=== PATIENT | female | born 1955 | race African-American/Black ===

== ENCOUNTER 2018-04-06 13:24 | Emergency (ER) | payer MEDICARE, MEDICAID ==
[~2018-04-06] VITALS: Ht 167.6 cm; Wt 102.9 kg
[2018-04-06] MEDS ORDERED: ASPIRIN 81 MG TABLET CHEW PO ONE (14:00)
[2018-04-06] MEDS ORDERED: FAMOTIDINE 20 MG/2 ML IVP ONE (14:30)
[2018-04-06] MEDS ORDERED: MAALOX/HYOSCYAMINE/LIDOCAINE 45 ML BTL PO ONE (14:30)
[2018-04-06] MEDS ORDERED: SODIUM CHLORIDE FLUSH 10ML SYR IVF ONE (14:30)
[2018-04-06] MEDS ORDERED: ONDANSETRON 2MG/ML, 2ML IVPush ONE (14:30)
[2018-04-06 14:42] LABS: MEAN CORPUSCULAR HEMOGLOBIN 29.1 pg (27.0-34.8); MEAN CORPUSCULAR HGB CONC 33.7 g/dL (32.4-35.8); MEAN CORPUSCULAR VOLUME 86.5 fL (80-100); MEAN PLATELET VOLUME 8.2 fL (7.4-10.4); PLATELET COUNT 312 x10^3/uL (130-400); RED BLOOD COUNT 5.33 x10^6/uL (3.82-5.3); RED CELL DISTRIBUTION WIDTH 12.4 % (9.6-15.2)
[2018-04-06 14:50] LABS: MD YES
[2018-04-06 14:53] LABS: ALBUMIN 3.6 g/dL (3.4-5.0); ANION GAP 6 mmol/L (5-15); CALCIUM 8.8 mg/dL (8.5-10.1); CHLORIDE 106 mmol/L (98-107)
[2018-04-06 14:58] LABS: CREATININE 0.83 mg/dL (0.55-1.02)
[2018-04-06 14:59] LABS: ALANINE AMINOTRANSFERASE 72 U/L (12-78); ALKALINE PHOSPHATASE 93 U/L (45-117); BILIRUBIN,TOTAL 0.7 mg/dL (0.2-1.0); TOTAL PROTEIN 7.5 g/dL (6.4-8.2); TROPONIN I < 0.015 ng/mL (0.000-0.045)
[2018-04-06] MEDS ORDERED: KETOROLAC 30 MG/1 ML IM ONE (15:00)
[2018-04-06] MEDS ORDERED: KETOROLAC 30 MG/1 ML ONE (15:16)
[2018-04-06] MEDS ORDERED: ONDANSETRON 2MG/ML, 2ML ONE (15:16)
[2018-04-06] MEDS ORDERED: FAMOTIDINE 20 MG/2 ML ONE (15:17)
[2018-04-06] MEDS ORDERED: MAALOX/HYOSCYAMINE/LIDOCAINE 45 ML BTL ONE (15:17)
[2018-04-06] MEDS ORDERED: ASPIRIN 81 MG TABLET CHEW ONE (15:17)
[2018-04-06] MEDS ORDERED: AMIT75TA PO (15:26)
[2018-04-06] MEDS ORDERED: ATOR40TA78 PO (15:26)
[2018-04-06 15:27] LABS: BAND#(MANUAL) 0.11 x10^3/uL; BANDS%(MANUAL) 1 % (0-7); LYMPH#(MANUAL) 0.32 x10^3/uL (1-3.4); LYMPHS% (MANUAL) 3 % (22-44); MONOS#(MANUAL) 0.32 x10^3/uL (0.3-2.7); MONOS% (MANUAL) 3 % (2-9); SEG#(MANUAL) 9.95 x10^3/uL (1.8-6.8); SEGS% (MANUAL) 93 % (42-75)
[2018-04-06] MEDS ORDERED: MONT10TA9 PO (15:27)
[2018-04-06] MEDS ORDERED: LOSA50TA7 PO (15:27)
[2018-04-06 15:28] LABS: <PLATELET ESTIMATE> ADEQUATE; <PLT MORPHOLOGY> NORMAL PLT MORPH; <RBC MORPHOLOGY> NORMAL
[2018-04-06] MEDS ORDERED: CETI-237 PO (15:28)
[2018-04-06] MEDS ORDERED: OMEP-110 PO (15:29)
[2018-04-06 16:38] VITALS: BP 144/78
== END 2018-04-06 16:41 | disposition home or self-care (01) ==
LOC: ED 15:40
DX: R11.2 Nausea with vomiting, unspecified (principal); R10.13 Epigastric pain
CPT/HCPCS: 36415; 71045; 74021; 80053; 83690; 84484; 85025; 93005; 96372; 96374; 96375; 99284; J1885; J2405; J3490

== ENCOUNTER 2018-06-11 14:34 | Emergency (ER) | payer MEDICARE, MEDICAID ==
[~2018-06-11] VITALS: Ht 167.6 cm; Wt 103.0 kg
[~2018-06-11 14:34] MED LIST: AMIT75TA PO; ATOR40TA78 PO; CETI-237 PO; LOSA50TA14 PO; MONT10TA9 PO; OMEP-110 PO
--- NOTE | 2018-06-11 14:51 | NUR ---
63 Y/O FEMALE BIB AMBULANCE WITH C/O LEFT HIP PAIN. "I WAS STEPPING OFF THE BUS AND I MISSTEPPED AND FELT MY LEFT HIP AREA PULL. IT'S BURNING STILL. IT'S HARD TO WALK." BEDSIDE. NO C/O LOC, N/V/D, GLF, CP, SOB, SYNCOPE. PT PLACED ON CONT PULSE OX,NIBP.
[2018-06-11] MEDS ORDERED: HYDROcodone/APAP 5/325 TABLET PO ONE (16:00)
--- NOTE | 2018-06-11 16:13 | NUR ---
LATE ENTRY FOR 1545 PT RESTING ON GURNEY. NO ACUTE DISTRESS NOTED. BEDSIDE. EDMD BEDSIDE.
[2018-06-11] MEDS ORDERED: HYDROcodone/APAP 5/325 TABLET ONE (16:24)
--- NOTE | 2018-06-11 16:29 | NUR ---
MEDICATION ADMINISTERED PER EMAR. NO ACUTE DISTRESS NOTED. BEDSIDE. NO OTHER NEEDS REQUESTED AT THIS TIME.
--- NOTE | 2018-06-11 17:20 | NUR ---
pt to imaging
--- NOTE | 2018-06-11 17:50 | NUR ---
PT BACK FROM IMAGING. DIET TRAY DELIVERED.
[2018-06-11 18:00] VITALS: BP 123/66
--- NOTE | 2018-06-11 18:08 | NUR ---
PT RESTING ON GURNEY. NO ACUTE DISTRESS NOTED. BEDSIDE. NO NEEDS REQUESTED AT THIS TIME.
--- NOTE | 2018-06-11 18:22 | NUR ---
PT AMBULATORY WITH SBA TO BATHROOM.
--- NOTE | 2018-06-11 19:00 | NUR ---
taxi voucher given. Pt verbalized and demonstrated correct use of walker.
== END 2018-06-11 19:01 | disposition home or self-care (01) ==
LOC: ED 17:11
DX: G89.11 Acute pain due to trauma (principal); M25.552 Pain in left hip; I10 Essential (primary) hypertension; E11.9 Type 2 diabetes mellitus without complications; W19.XXXA Unspecified fall, initial encounter; Y93.89 Activity, other specified; Y92.410 Unspecified street and highway as the place of occurrence of the external cause; Y99.8 Other external cause status
CPT/HCPCS: 99284

== ENCOUNTER 2021-01-12 08:57 | Outpatient (CLI) | payer MEDICARE, MEDICAID ==
[~2021-01-12 08:57] MED LIST changes: +MONT10TA17 PO; -MONT10TA9 PO
== END 2021-01-12 23:59 | disposition home or self-care (01) ==
LOC: CARD 08:57
PROVIDERS: ATTEND Internal Medicine Cardiovascular Disease
DX: R06.02 Shortness of breath (principal)
CPT/HCPCS: 93017